=== PATIENT | male | born 1950 | race Caucasian/White ===

== ENCOUNTER 2021-05-23 08:30 | Outpatient (CLI) | payer OTHER ==
[~2021-05-23 08:30] MED LIST: ALBU6.7H9 INH; ALBU8HFA PO; AMLO2.5T2 PO; HYDR12.5 PO; LISI20TA28 PO; METF500T PO; ROSU20TA2 PO
== END 2021-05-23 23:59 | disposition home or self-care (01) ==
LOC: CARD DIAG 08:30
DX: I34.0 Nonrheumatic mitral (valve) insufficiency (principal); I25.10 Atherosclerotic heart disease of native coronary artery without angina pectoris; I73.9 Peripheral vascular disease, unspecified
CPT/HCPCS: 93306; 93922